=== PATIENT | male | born 2000 | race American Indian/Alaskan Native ===

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

== ENCOUNTER 2020-04-30 14:58 | Emergency (ER) | payer BC, MEDICAID ==
[2020-04-30 15:04] VITALS: BP 135/87
[2020-04-30] MEDS ORDERED: dexAMETHasone 4 MG/ML VIAL IM ONE (15:04)
[2020-04-30] MEDS ORDERED: FAMOTIDINE 20 MG TAB PO ONE (15:04)
[2020-04-30] MEDS ORDERED: diphenhydrAMINE 25 MG CAP PO ONE (15:04)
--- NOTE | 2020-04-30 15:06 | Emergency Department Report ---
HPI - General Chief Complaint: Allergic Reaction PUI?: No Time Seen by Provider: 04/30/20 15:03 - HPI HPI: 20 YO COMES TO ER CO RASH. ? ETIOLOGY. HE HAS HX ASTHMA AND ECZEMA. HE IS ALLERGIC TO SHRIMP BUT HE HAS NO EXPOSURE THIS AM THAT WOULD HAVE CAUSED THIS. HE HAS BEEN TOLD HE NEEDS TO SEE ACCOUNTING SOFTWARE SPECIALIST IN PAST BUT NEVER HAS. [facility] INTACT SAT 100 ON ROOM AIR TAKING PO WITHOUT DIFFICULTY ED Past Medical Hx - Past Medical History Previous Medical History?: Yes Hx Asthma: Yes - Surgical History Past Surgical History?: No - Family History Family history: no significant - Social History Smoking Status: Never Smoker Substance Use Type: Alcohol - Medications Home Medications: Home Medications Medication Instructions Recorded Confirmed Last Taken Type Budesonide [Pulmicort Flexhaler] 90 mcg IH BID #1 aer.pow.ba 06/10/14 Unknown Rx predniSONE [Deltasone] 40 mg PO QDAY #14 tab 06/10/14 Unknown Rx Acetaminophen [Acetaminophen TAB] 500 mg PO Q6HR PRN #30 tablet 03/22/17 Unknown Rx Albuterol Sulfate [Ventolin Hfa] 1 gm IH Q4H PRN #1 hfa.aer.ad 03/22/17 Unknown Rx Azithromycin [Zithromax Z-JOSE] 250 mg PO QDAY #1 pack 03/22/17 Unknown Rx Phenylephrine/Dm/Acetaminop/GG 10 ml PO Q4H PRN #1 liquid 03/22/17 Unknown Rx [Mucinex Sowp-Pzq-Dtzipxgtiu Lq] predniSONE [Deltasone] 20 mg PO QDAY #3 tab 03/22/17 Unknown Rx Cetirizine HCl [ZyrTEC] 10 mg PO DAILY #30 capsule 04/30/20 Unknown Rx hydrOXYzine PAMOATE [Vistaril] 25 mg PO Q6HR PRN #20 capsule 04/30/20 Unknown Rx predniSONE [Deltasone] 20 mg PO DAILY #5 tablet 04/30/20 Unknown Rx ED Review of Systems ROS: Stated complaint: ALLERGIC REACTION Other details as noted in HPI Comment: All other systems reviewed and negative Constitutional: denies: chills, fever Eyes: denies: eye pain, eye discharge, vision change ENT: denies: ear pain, throat pain Respiratory: denies: cough, shortness of breath, wheezing Cardiovascular: denies: chest pain, palpitations Endocrine: no symptoms reported Gastrointestinal: denies: abdominal pain, nausea, diarrhea Genitourinary: denies: urgency, dysuria Musculoskeletal: denies: back pain, joint swelling, arthralgia Skin: denies: rash, lesions Neurological: denies: headache, weakness, paresthesias Psychiatric: denies: anxiety, depression Hematological/Lymphatic: denies: easy bleeding, easy bruising Physical Exam - Physical Exam Physical Exam: ALERT ORIENTED NO DISTRESS NO SOB NO CP MACULAR RASH ITCHING IN TRIAGE MUCOUS MEMBRANES MOIST CONTROLLING SECRETIONS LUNGS CTA ABD SNT ED Medical Decision Making - Medical Decision Making MEDICATED WITH DECADRON, PEPCID AND BENADRYL - with dec itching Vital Signs 04/30/20 15:02 Temperature 98.2 F Pulse Rate 77 Respiratory 18 Rate Blood Pressure 135/87 O2 Sat by Pulse 100 Oximetry pt dc home with dc poc- he verbalizes understanding of plan of care On dc he is in no acute distress, ambulatory and non ill appearing. - Differential Diagnosis ALLERGIC REACTION ? ETIO Critical care attestation.: If time is entered above; I have spent that time in minutes in the direct care of this critically ill patient, excluding procedure time. ED Disposition Clinical Impression: Allergic reaction, Rash Disposition: DC-01 TO HOME OR SELFCARE Is pt being admited?: No Does the pt Need Aspirin: No Condition: Stable Instructions: Hives Additional Instructions: FOLLOW UP WITH PCP AND ACCOUNTING SOFTWARE SPECIALIST REFERRALS BELOW MEDS ORDERED TODAY Prescriptions: predniSONE [Deltasone] 20 mg PO DAILY #5 tablet hydrOXYzine PAMOATE [Vistaril] 25 mg PO Q6HR PRN #20 capsule PRN Reason: Itching Cetirizine HCl [ZyrTEC] 10 mg PO DAILY #30 capsule Referrals: OLGA PRICE MD [Staff Physician] - 3-5 Days CHRIS CHASE MD [Staff Physician] - 3-5 Days Forms: Work/School Release Form(ED) Time of Disposition: 15:04
== END 2020-04-30 16:38 | disposition home or self-care (01) ==
LOC: ED 14:58
DX: T78.40XA Allergy, unspecified, initial encounter (principal); J45.909 Unspecified asthma, uncomplicated; Z79.899 Other long term (current) drug therapy
CPT/HCPCS: 96372; 99282; J1100